=== PATIENT | female | born 1990 | race Caucasian/White ===

== ENCOUNTER 2018-07-10 18:30 | Outpatient (REF) | payer SELFPAY ==
[2018-07-14 12:15] LABS: HBs Antibody, Quant 15.9 mIU/mL; Hepatitis B Surface Ab Positive
[2018-07-14 12:58] LABS: Measles IgG Antibody Positive; Mumps Antibody IgG Positive (Negative); Varicella IgG Antibody Positive
[2018-07-14 13:25] LABS: Rubella IgG Ab (UVM) Positive
== END 2018-07-10 18:31 ==
LOC: NCHCN 18:30
DX: Z11.59 Encounter for screening for other viral diseases (principal)

== ENCOUNTER 2019-01-02 17:02 | Outpatient (REF) | payer SELFPAY | END 2019-01-02 17:22 | LOC: NCHCN 17:02 | PROVIDERS: Visit Provider Internal Medicine | DX: N39.0 Urinary tract infection, site not specified (principal) | CPT/HCPCS: 87086 ==

== ENCOUNTER 2020-07-26 15:03 | Outpatient (REF) | payer OTHER, SELFPAY ==
[2020-07-26 19:48] LABS: TSH (W/Ref FT4) 2.92 uIU/mL (0.36-3.74)
== END 2020-07-26 15:23 ==
LOC: LBN 15:03
PROVIDERS: Visit Provider Advanced Practice Midwife
DX: R53.83 Other fatigue (principal)
CPT/HCPCS: 84443

== ENCOUNTER 2020-10-27 22:44 | Outpatient (REF) | payer OTHER, SELFPAY ==
[2020-10-27 20:29] LABS: HCG Quant, Pregnancy < 1 mIU/mL (1-3)
== END 2020-10-27 23:04 ==
LOC: LBN 22:44
PROVIDERS: Visit Provider Advanced Practice Midwife
DX: N92.5 Other specified irregular menstruation (principal)
CPT/HCPCS: 84702

== ENCOUNTER 2021-06-27 13:09 | Outpatient (REF) | payer OTHER, SELFPAY ==
[2021-06-27 20:00] LABS: HCG Quant, Pregnancy 685 mIU/mL (1-3)
== END 2021-06-27 13:10 | disposition home or self-care (01) ==
LOC: LBN 13:09
PROVIDERS: PCP Nurse Practitioner Family; Visit Provider Obstetrics & Gynecology
DX: O20.9 Hemorrhage in early pregnancy, unspecified (principal)
CPT/HCPCS: 84702

== ENCOUNTER 2021-07-04 11:47 | Outpatient (REF) | payer OTHER, SELFPAY ==
[2021-07-04 19:33] LABS: HCG Quant, Pregnancy 57 mIU/mL (1-3)
== END 2021-07-04 11:48 | disposition home or self-care (01) ==
LOC: LBN 11:47
PROVIDERS: PCP Nurse Practitioner Family; Visit Provider Advanced Practice Midwife
DX: O03.4 Incomplete spontaneous abortion without complication (principal)
CPT/HCPCS: 84702

== ENCOUNTER 2021-07-11 12:00 | Outpatient (REF) | payer OTHER, SELFPAY ==
[2021-07-11 19:57] LABS: HCG Quant, Pregnancy 4 mIU/mL (1-3)
== END 2021-07-11 12:01 | disposition home or self-care (01) ==
LOC: LBN 12:00
PROVIDERS: PCP Nurse Practitioner Family; Visit Provider Advanced Practice Midwife
DX: O03.4 Incomplete spontaneous abortion without complication (principal)
CPT/HCPCS: 84702

== ENCOUNTER 2021-11-01 16:38 | Outpatient (REF) | payer OTHER, SELFPAY ==
[2021-11-02 22:41] LABS: COVID-19 RT-PCR UVMMC Result Negative (Negative)
== END 2021-11-01 16:39 | disposition home or self-care (01) ==
LOC: NCHCN 16:38
PROVIDERS: PCP Nurse Practitioner Family; Visit Provider Internal Medicine
DX: Z20.822 Contact with and (suspected) exposure to COVID-19 (principal)
CPT/HCPCS: U0003

== ENCOUNTER 2022-08-13 15:24 | Outpatient (REF) | payer OTHER, SELFPAY ==
[2022-08-13 20:02] LABS: TSH (W/Ref FT4) 1.59 uIU/mL (0.36-3.74)
== END 2022-08-13 15:25 | disposition home or self-care (01) ==
LOC: LBN 15:24
PROVIDERS: PCP Nurse Practitioner Family; Visit Provider Advanced Practice Midwife
DX: Z13.29 Encounter for screening for other suspected endocrine disorder (principal)
CPT/HCPCS: 84443

== ENCOUNTER 2023-04-09 19:30 | Outpatient (REF) | payer BC, SELFPAY ==
[2023-04-09 19:38] LABS: ALT 27 U/L (14-59); AST 29 U/L (15-37); Albumin 3.6 g/dL (3.4-5.0); Alkaline Phosphatase 37 U/L (46-116); Anion Gap 6.4 mmol/L (3-11); BUN 13 mg/dL (7-18); Bilirubin, Total 1.1 mg/dL (0.2-1.0); CO2 31.6 mmol/L (21.0-32.0); Calcium 8.8 mg/dL (8.5-10.1); Chloride 103 mmol/L (98-107); Estimated GFR 77.24 (mL/min/1.73m2); Glucose 91 mg/dL (74-106); Magnesium 1.9 mg/dL (1.8-2.4); Potassium 3.6 mmol/L (3.5-5.1); Sodium 141 mmol/L (136-145); Total Protein 7.7 g/dL (6.4-8.2)
[2023-04-09 19:57] LABS: Vitamin D 25 Total 39.3 ng/mL (30-100)
== END 2023-04-09 19:31 | disposition home or self-care (01) ==
LOC: LBN 19:30
PROVIDERS: PCP Nurse Practitioner Family; Visit Provider Nurse Practitioner Family
DX: M62.838 Other muscle spasm (principal); E55.9 Vitamin D deficiency, unspecified
CPT/HCPCS: 80053; 82306; 83735